=== PATIENT | male | born 1935 | race Caucasian/White ===

== ENCOUNTER → 2018-01-23 | Outpatient (CLI) | payer OTHER | END | disposition home or self-care (01) | LOC: PCVCIMAG 15:43 | DX: I25.10 Atherosclerotic heart disease of native coronary artery without angina pectoris (principal); I10 Essential (primary) hypertension; E83.59 Other disorders of calcium metabolism | CPT/HCPCS: 93325; 93351 ==

== ENCOUNTER → 2018-07-03 | Outpatient (CLI) | payer OTHER | END | disposition home or self-care (01) | LOC: PCVCCLINIC 09:49 | PROVIDERS: ATTEND Internal Medicine | DX: I10 Essential (primary) hypertension (principal); E78.5 Hyperlipidemia, unspecified; R93.1 Abnormal findings on diagnostic imaging of heart and coronary circulation; Z87.891 Personal history of nicotine dependence; Z79.899 Other long term (current) drug therapy | CPT/HCPCS: 80061; 93005; G0463 ==

== ENCOUNTER → 2018-10-15 | Outpatient (CLI) | payer OTHER ==
--- NOTE | 2018-10-15 10:57 | PCVCIMAG ---
APPROVED REPORT Laterality: Bilateral Indications Bruit Doppler Spectral Velocity Analysis PSV / EDVPSV / EDV ECA (R) 104 / 13 cm/sECA (L) 79 / 8 cm/s dICA (R) 82 / 27 cm/sdICA (L) 73 / 24 cm/s Raquel (R) 78 / 29 cm/smICA (L) 85 / 24 cm/s pICA (R) 90 / 26 cm/spICA (L) 81 / 14 cm/s Bulb (R) 51 / 23 cm/sBulb (L) 98 / 21 cm/s dCCA (R) 107 / 22 cm/sdCCA (L) 104 / 21 cm/s mCCA (R) 102 / 25 cm/smCCA (L) 128 / 29 cm/s Vert (R) 43 / 9 cm/sVert (L) 48 / 10 cm/s ICA/CCA 0.84ICA/CCA 0.82 Basic Measurements Blood Pressure: Pulses: Right Left RightLeft Brachial(Sitting) 130/11dgOg135/76mmHgTemporal Real Time B-Mode Imaging Vert. (R)AntegradeVert. (L)Antegrade Findings The right carotid bulb has moderate calcified plaque. The right proximal internal carotid artery shows <40% stenosis. The right common carotid artery shows no significant stenosis. The right external carotid artery shows no significant stenosis. The left carotid bulb has mild calcified plaque. The left proximal internal carotid artery shows no significant stenosis. The left common carotid artery shows no significant stenosis. The left external carotid artery shows no significant stenosis. Conclusion 1. Right internal carotid artery stenosis (<40%) 2. Left internal carotid artery plaquing without significant stenosis 3. Antegrade vertebral flow
--- NOTE | 2018-10-15 13:55 | PCVCIMAG ---
EXAM: AORTOILIAC DUPLEX INDICATION: Peripheral arterial disease FINDINGS: AORTA: Suprarenal aorta measures maximum diameter of 2.7 cm. There is not a fusiform infrarenal aortic aneurysm. The infrarenal aorta measures maximum diameter of 2.1 cm. No aortic stenosis. RIGHT COMMON ILIAC ARTERY: Maximum diameter is 0.8 cm. No significant stenosis. RIGHT EXTERNAL ILIAC ARTERY: No significant stenosis. LEFT COMMON ILIAC ARTERY: Maximum diameter is 1.1 cm. No significant stenosis. LEFT EXTERNAL ILIAC ARTERY: No significant stenosis. IMPRESSION: No abdominal aortic aneurysm. No aortoiliac stenosis seen. LOC:[id number]
== END | disposition home or self-care (01) ==
LOC: PCVCIMAG 13:00
PROVIDERS: ATTEND Internal Medicine
DX: I65.23 Occlusion and stenosis of bilateral carotid arteries (principal); R09.89 Other specified symptoms and signs involving the circulatory and respiratory systems; R19.00 Intra-abdominal and pelvic swelling, mass and lump, unspecified site; R93.1 Abnormal findings on diagnostic imaging of heart and coronary circulation; I10 Essential (primary) hypertension; E78.2 Mixed hyperlipidemia; I73.9 Peripheral vascular disease, unspecified
CPT/HCPCS: 93880; 93978

== ENCOUNTER → 2019-06-09 | Outpatient (CLI) | payer OTHER | END | disposition home or self-care (01) | LOC: PCVCCLINIC 13:46 | PROVIDERS: ATTEND Internal Medicine | DX: R93.1 Abnormal findings on diagnostic imaging of heart and coronary circulation (principal); I10 Essential (primary) hypertension; E78.5 Hyperlipidemia, unspecified; I65.23 Occlusion and stenosis of bilateral carotid arteries | CPT/HCPCS: 36415; 80061; 93005; G0463 ==